=== PATIENT | male | born 1970 | race Two or more races ===

== ENCOUNTER → 2023-03-26 08:46 | Outpatient (REF) | payer OTHER, SELFPAY | LOC: RCS 08:46 | PROVIDERS: ATTENDING PHYSICIAN Internal Medicine Cardiovascular Disease; FAMILY PHYSICIAN Family Medicine | DX: I25.10 Atherosclerotic heart disease of native coronary artery without angina pectoris (principal); Z98.890 Other specified postprocedural states; I45.10 Unspecified right bundle-branch block; R07.89 Other chest pain | CPT/HCPCS: 93017; 93350 ==

== ENCOUNTER 2024-01-02 01:07 | Emergency (ER) | payer OTHER, SELFPAY ==
[2024-01-02 01:12] VITALS: BP 147/73
--- NOTE | 2024-01-02 01:24 | ED.GENMED ---
History of Present Illness
General
Chief Complaint: Heart Rate Problem
Time Seen by Provider: 01/02/24 01:24
History of Present Illness
History of Present Illness:
TIME OF INITIAL ENCOUNTER: 1:25 AM
HPI: Patient presents with palpitations that started yesterday morning. This is associated with some chest discomfort. He states that the chest discomfort is not described as a pain but is somewhat similar to when he had stents placed in his
coronaries in 2012. He is known to Dr. Baires. He called Dr. Baires and someone from their office told them to go to the emergency department if he has recurrence of symptoms. Since his symptoms recurred as he was trying to go to bed, he came in
here for further evaluation. He never became diaphoretic and had no shortness of breath. He takes omeprazole for acid reflux and thinks that he has been having some increased acid reflux symptoms as well.
EXAM:
GENERAL: Well appearing in no distress
HEENT: Moist oral mucosa
CARDIOVASCULAR: No murmurs, normal heart rate, regular rhythm, No chest wall tenderness
PULMONARY: No respiratory distress, breath sounds are clear and equal
ABDOMEN: Soft with no peritoneal signs, no tenderness
NEUROLOGIC: Excellent strength all extremities, no coordination deficits
PSYCHIATRIC: Appropriate mental status, normal insight and judgement
EXTREMITIES: Nontender, no edema, moves all extremities equally
SKIN: No rash, no lesions
NUMBER AND COMPLEXITY OF PROBLEMS ADDRESSED AT THE ENCOUNTER
� Chronic conditions affecting care: Hyperlipidemia, IDDM, CAD
� Acute Exacerbation and/or Progression of Chronic Illness: This is an acute problem
� Differential Diagnosis includes: GERD, ACS, chest wall pain, noncardiac chest, doubt pneumothorax/pneumonia, highly doubt PE given lack of shortness of breath
AMOUNT AND/OR COMPLEXITY OF DATA TO BE REVIEWED AND ANALYZED
� I performed an independent evaluation of and my interpretation is:
EKG: Sinus 62, leftward axis deviation, bifascicular block which is comparable in appearance to the EKG from 2012
CT:
X-rays:
Laboratory Studies: CBC normal, chemistries unremarkable, initial troponin less than 0.012
Other:
� Review of other/old records: I reviewed records. Until 1011 the patient had a cath which showed multivessel disease. At that time he also had palpitations. He had a Holter monitor in 2019 with very rare isolated ectopy and
no sustained arrhythmias. The patient had a stress echo 03/26/23 that was deemed to be normal/low risk stress test.
� Clinical information was obtained by an independent historian: I spoke to at bedside
� Prescriptions/Medications Considered but not given:
� Further testing considered but not performed:
RISK OF COMPLICATIONS AND/OR MORBIDITY OR MORTALITY OF PATIENT MANAGEMENT
� Social determinants of health affecting care: Lives at home
� Discussion with other providers:
� Escalation of care including admission/observation vs risk of discharge considered: Upon initial evaluation, the patient has no symptoms. He states his symptoms are somewhat similar to when he had a cath in 2011 where he was
found to have two-vessel coronary disease and had stents placed to the first diagonal and OM1. He has an appointment to see cardiology this coming Thursday.
ANY OTHER UPDATES:
2:15 AM: I reassessed patient. Initial EKG and troponin unremarkable. The patient states he had 1 episode and questions if this could have been reflux and wonders if she take something other than omeprazole. Will add a dose of Pepcid now but he
remains pain-free currently. Emphasized need for follow-up with cardiology on Thursday. I also encouraged him to return here if symptoms worsen.
Phy Exam
Physical Exam
Physical Exam:
See HPI
Course
Orders/Labs/Results
Orders:
Orders
01/02/24 01:20
Electrocardiogram (*1) Urgent
Reason for Study: Chest Pain
Cardiac Monitoring- Treatment ONCE
EKG- Treatment ONCE
01/02/24 01:30
Complete Blood Count/With Diff Urgent
Comprehensive Metabolic Panel Urgent
TSH Reflex To Free T4 Urgent
Troponin I Urgent
01/02/24 01:36
CR Chest - 2 Views Urgent
Comment:
Reason For Exam: cp
01/02/24 01:42
EKG- Treatment ONCE
01/02/24 02:27
Famotidine [Pepcid] 20 mg IV NOW STA
01/02/24 04:30
Electrocardiogram (*1) Urgent
Reason for Study: Palpitations
01/02/24 04:33
Troponin I Urgent
Abnormal Lab Results
01/02/24
01:30
MCHC 32.7 L g/dL
(33.0-37.0)
MPV 11.2 H fL
(7.4-10.4)
Glucose 128 H mg/dl
(70-99)
01/02/24 01:30
01/02/24 01:30
Vital Signs
Initial and Last Documented VS:
Initial Vital Signs
Temp Pulse Resp BP Pulse Ox
98.5 F 72 20 147/73 100
01/02/24 01:12 01/02/24 01:12 01/02/24 01:12 01/02/24 01:12 01/02/24 01:12
Last Documented Vital Signs
Temp Pulse Resp BP Pulse Ox
98.5 F 62 15 111/64 97
01/02/24 01:12 01/02/24 05:00 01/02/24 05:00 01/02/24 05:00 01/02/24 05:00
*Critical Care Note
Total Time (30-74mins, 75-104mins- exclusive of procedures): Not Applicable
ED Attending Note
-
Portions of this chart may have been created with voice recognition software.� Occasional wrong word or��sound alike� substitutions may have occurred due to the inherent limitations of voice recognition software.
Discharge Plan
Departure
Patient Disposition: Home (Routine Discharge)
Date of Disposition: 01/02/24
Time of Disposition: 05:36
Patient with high blood pressure during this ER visit?: No
Condition: Good
Discharge Problem:
Nonspecific chest pain
Instructions: Chest Pain DCA Follow Up
Prescriptions:
No Action
atorvastatin [Lipitor] 10 MG tablet
20 mg PO DAILY
aspirin 81 MG tablet,delayed release (DR/EC)
81 mg PO DAILY
insulin aspart U-100 [Novolog FlexPen U-100 Insulin] 100 UNITS/ML insulin pen
20 unit SC AC PRN (Reason: ac)
Patient Comments:
pt stated that he takes TID at 0800, 1700, 2200
insulin glargine 100 UNIT/1 ML insulin pen
20 - 25 unit SQ HS
Patient Comments:
pt states he takes 20 units of lantus at night. His insulin pen at home is
100 units/1ml in a 3ml pen
enalapril maleate 2.5 mg Tablet
2.5 mg PO DAILY
omeprazole 40 mg Capsule,Delayed Release(Dr/Ec)
40 mg PO DAILY
Referrals:
Sulaiman Mccray MD [Family Provider] -
Activity Restrictions/Additional Instructions:
Be sure to follow-up with cardiology on Thursday. Cardiac blood work unremarkable here. However if symptoms worsen I recommend that you return here for further evaluation.
Interventions
Interventions:
*Risk Screen - Suicide Last Done: 01/02/24 01:12
*General Assessment Last Done: 01/02/24 01:12
*Neglect/Abuse Screening Last Done: 01/02/24 01:12
ED- Fall Risk Assessment Last Done: 01/02/24 01:12
*ED COVID-19 Vaccine History Last Done: 01/02/24 01:12
*Nursing Disposition Last Done: 01/02/24 05:45
TA-Mehmlg-Vgfgqbupgb Assessment Last Done: 01/02/24 01:46
ED- Cardiac Assessment Last Done: 01/02/24 01:46
ED- Pulmonary Assessment Last Done: 01/02/24 01:46
Discharge Date and Time
Discharge Date/Time: 01/02/24 05:45
Print Language: OCCITAN
[2024-01-02 01:32] VITALS: BMI 26.3
[2024-01-02 01:39] LABS: % Basophils 0.9 % (0-2); % Eosinophils 3.7 % (0-6); % Immature Granulocytes 0.1 % (0-0.5); % Lymphocytes 32.7 % (20.5-51.1); % Monocytes 7.3 % (1.7-9.3); % Neutrophils 55.3 % (42.2-75.2); Absolute Basophils 0.1 10^3/uL (0-0.2); Absolute Eosinophils 0.3 10^3/uL (0-0.7); Absolute Lymphocytes 2.3 10^3/uL (1.2-3.4); Absolute Monocytes 0.5 10^3/uL (0.1-0.6); Absolute Neutrophils 3.8 10^3/uL (1.4-6.5); Hematocrit 47.1 % (39.0-52.0); Hemoglobin 15.4 g/dL (13.0-18.0); Mean Corp Hgb Conc. 32.7 g/dL (33.0-37.0); Mean Corpuscular Hgb 29.3 pg (27.0-31.0); Mean Corpuscular Volume 89.7 fL (80.0-94.0); Mean Platelet Volume 11.2 fL (7.4-10.4); Nucleated Red Blood Cells % 0 % (-); Platelet Count 198 10^3/uL (130-400); Red Blood Cell Count 5.25 10^6/uL (4.70-6.10)
[2024-01-02 02:01] VITALS: BP 110/61
[2024-01-02 02:05] LABS: ALT (SGPT) 31 U/L (0-50); AST (SGOT) 26 U/L (17-59); Albumin 4.4 g/dl (3.5-5.0); Alkaline Phosphatase 86 U/L (38-126); Blood Urea Nitrogen 17 mg/dl (9-20); Carbon Dioxide 23 mmol/L (22-30); Chloride 105 mmol/L (98-107); Estimated Creatinine Clearance 73 ml/min; Glucose 128 mg/dl (70-99); Potassium 4.4 mmol/L (3.5-5.1); Sodium 142 mmol/L (135-145); Total Bilirubin 0.6 mg/dl (0.2-1.3); Total Protein 7.1 g/dl (6.3-8.2); eGFR > 60.00
[2024-01-02 02:16] LABS: Troponin I < 0.012 ng/ml
[2024-01-02] MEDS: PEPCID 20 MG IV (02:36)
[2024-01-02 03:00] VITALS: BP 97/62
[2024-01-02 04:05] VITALS: BP 109/63
[2024-01-02 05:00] VITALS: BP 111/64
[2024-01-02 05:06] LABS: Troponin I < 0.012 ng/ml
== END 2024-01-02 05:45 | disposition home or self-care (01) ==
LOC: EMR 01:07
PROVIDERS: Emergency Medicine; EMERGENCY PHYSICIAN Emergency Medicine; FAMILY PHYSICIAN Family Medicine
DX: R07.89 Other chest pain (principal)
CPT/HCPCS: 99283; 96374; 71046; 80053; 84443; 84484; 85025; 93005

== ENCOUNTER → 2024-01-11 08:30 | Outpatient (REF) | payer OTHER, SELFPAY | LOC: HWRCS 08:30 | PROVIDERS: ATTENDING PHYSICIAN Nurse Practitioner; FAMILY PHYSICIAN Family Medicine | DX: I25.10 Atherosclerotic heart disease of native coronary artery without angina pectoris (principal) | CPT/HCPCS: 93306 ==